=== PATIENT | female | born 1965 | race African-American/Black ===

== ENCOUNTER → 2019-12-26 | Outpatient (CLI) | payer OTHER ==
[2015-09-24 22:00] VITALS: BP 103/49
[~2019-12-26] MED LIST: FOLI1TAB16 PO; LORA0.5T21 PO; QUET25TA5 PO
--- NOTE | 2019-12-26 14:59 | RAD ---
DATE: 12/26/2019 2:35 PM EXAM: DIGITAL SCREEN BILAT W/CAD HISTORY: Screening COMPARISON: None. This is a baseline Bilateral full field craniocaudal and mediolateral oblique images were obtained using digital technique. This study was interpreted with the benefit of Computerized Aided Detection (CAD). FINDINGS: Breast Density: SCATTERED The breast parenchyma shows scattered fibroglandular densities. Breast parenchyma level B No suspicious masses, microcalcifications or architectural distortion is present to suggest malignancy in either breast. The visualized axillae are unremarkable. IMPRESSION: No mammographic evidence of malignancy. BI-RADS CATEGORY: 1 NEGATIVE RECOMMENDED FOLLOW-UP: 12M 12 MONTH FOLLOW-UP Annual screening mammography is recommended, unless clinically indicated sooner based on symptoms or change in physical exam. PQRS compliance statement: Patient information was entered into a reminder system with a target due date for the next mammogram. Mammography is a sensitive method for finding small breast cancers, but it does not detect them all and is not a substitute for careful clinical examination. A negative mammogram does not negate a clinically suspicious finding and should not result in delay in biopsying a clinically suspicious abnormality. "Our facility is accredited by the [employer] Mammography Program."
== END | disposition home or self-care (01) ==
LOC: MAMMO 14:32
PROVIDERS: ATTEND Nurse Practitioner Primary Care
DX: Z12.31 Encounter for screening mammogram for malignant neoplasm of breast (principal)
CPT/HCPCS: 77067